=== PATIENT | male | born 1995 | race Caucasian/White ===

== ENCOUNTER 2023-05-09 22:43 | Emergency (ER) | payer OTHER, SELFPAY ==
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
[2023-05-09 22:56] VITALS: BP 143/92; PULSE 87; RESP 16; O2SAT 96; BMI 39.3
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
[2023-05-10 02:00] VITALS: BP 149/96; PULSE 72; RESP 20; TEMP 36.4; O2SAT 95
[2023-05-10] MEDS: Butalb/Acetamin/Caff 50/325/40 TABLET 1 TAB PO (03:00)
== END 2023-05-10 03:00 | disposition home or self-care (01) ==
PROVIDERS: Emergency Provider Internal Medicine
DX: S06.0X0A Concussion without loss of consciousness, initial encounter (principal); V43.62XA Car passenger injured in collision with other type car in traffic accident, initial encounter; Y93.89 Activity, other specified; Y92.410 Unspecified street and highway as the place of occurrence of the external cause; Y99.9 Unspecified external cause status
CPT/HCPCS: 70450; 99284